=== PATIENT | male | born 1995 | race American Indian/Alaskan Native ===

== ENCOUNTER 2016-11-01 19:40 | Emergency (ER) | payer MEDICAID, OTHER ==
[~2016-11-01] VITALS: Ht 188 cm; Wt 87.1 kg
[2016-11-01 19:40] VITALS: BP 120/60
[2016-11-01] MEDS ORDERED: NORCO 5/325MG TABLET (BULK FOR ED) PO ONE (22:00)
[2016-11-01] MEDS ORDERED: IBUP600T26 PO (22:00)
--- NOTE | 2016-11-02 07:38 | REP ---
Clinical: Trauma . Technique: Internal rotation, external rotation, and Y view right shoulder . Findings: No acute fracture or dislocation. The acromioclavicular and glenohumeral joints are intact. No periarticular calcifications or degenerative changes are appreciated. Sub acromial space is normal. Surrounding soft tissues are unremarkable. Impression: Normal right shoulder radiographs. Signed by Hamilton Savage MD 11/02/2016 07:30 A
== END 2016-11-01 22:20 | disposition home or self-care (01) ==
LOC: M ED 20:01
DX: S46.811A Strain of other muscles, fascia and tendons at shoulder and upper arm level, right arm, initial encounter (principal); X58.XXXA Exposure to other specified factors, initial encounter; Y92.39 Other specified sports and athletic area as the place of occurrence of the external cause; Y93.89 Activity, other specified; Y99.9 Unspecified external cause status; F17.200 Nicotine dependence, unspecified, uncomplicated

== ENCOUNTER 2017-03-01 16:21 | Emergency (ER) | payer OTHER ==
[~2017-03-01] VITALS: Ht 188 cm; Wt 90.9 kg
[~2017-03-01 16:21] MED LIST: IBUP-1022 PO
[2017-03-01] MEDS ORDERED: ONDANSETRON 4MG/2ML VIAL (J2405) IV ONE (17:45)
[2017-03-01] MEDS ORDERED: NS 1,000 ML IV ONE (17:45)
[2017-03-01 18:19] LABS: BASO % 0.5 % (0.0-1.0); EOS # 0.2 K/mm3 (0.0-0.50); EOS % 2.4 % (0.0-3.0); LARGE UNSTAINED CELL # 0.2 K/mm3 (0.0-0.4); LARGE UNSTAINED CELL % 2.8 % (0.0-4.0); LYMPH # 2.3 K/mm3 (1.5-6.5); LYMPH % 31.4 % (24.0-44.0); MEAN CORPUSCULAR HEMOGLOBIN 32.2 pg (27.0-33.0); MEAN CORPUSCULAR VOLUME 87.1 fl (80.0-96.0); MONO # 0.4 K/mm3 (0.0-0.8); MONO % 5.5 % (0.0-5.0); NEUTROPHILS # 4.2 K/mm3 (1.8-7.7); NEUTROPHILS % 57.4 % (36.0-66.0); PLATELET COUNT, AUTOMATED 263 k/mm3 (150-450); RED CELL DISTRIBUTION WIDTH 11.5 % (11.5-14.5); WHITE BLOOD COUNT 7.2 K/mm3 (4.0-10.0)
[2017-03-01 18:46] LABS: ALBUMIN 4.6 GM/DL (3.2-5.2); ALKALINE PHOSPHATASE 93 U/L (45-117); ALT/SGPT 116 U/L (12-78); ANION GAP 10 MEQ/L (8-16); AST/SGOT 47 U/L (15-37); BILIRUBIN,DIRECT < 0.1 MG/DL (0.0-0.2); BILIRUBIN,TOTAL 0.4 MG/DL (0.2-1.0); BLOOD UREA NITROGEN 16 MG/DL (7-18); CALCIUM LEVEL 9.6 MG/DL (8.5-10.1); CARBON DIOXIDE LEVEL 26 MEQ/L (21-32); CHLORIDE LEVEL 103 MEQ/L (98-107); CREATININE FOR GFR 0.96 MG/DL (0.70-1.30); GLOMERULAR FILTRATION RATE > 60.0 (>60); GLUCOSE, FASTING 91 MG/DL (70-105); POTASSIUM SERUM 3.5 MEQ/L (3.5-5.1); SODIUM LEVEL 139 MEQ/L (136-145); TOTAL PROTEIN 8.8 GM/DL (6.4-8.2)
[2017-03-01 18:51] LABS: ADD MORPHOLOGY? NO; MEAN CORPUSCULAR HGB CONC 36.9 g/dl (32.0-36.5)
[2017-03-01] MEDS ORDERED: ZOFR4TAB3 PO (20:17)
[2017-03-01 20:56] VITALS: BP 126/72
== END 2017-03-01 20:58 | disposition home or self-care (01) ==
LOC: M ED 16:21
DX: R11.2 Nausea with vomiting, unspecified (principal); F17.210 Nicotine dependence, cigarettes, uncomplicated
CPT/HCPCS: 80048; 80076; 83690; 85025; 96374; 99283; J2405

== ENCOUNTER 2017-03-21 17:17 | Emergency (ER) | payer OTHER ==
[~2017-03-21] VITALS: Ht 190.5 cm; Wt 94.5 kg
[~2017-03-21 17:17] MED LIST changes: +ZOFR4TAB3 PO
[2017-03-21 20:18] VITALS: BP 130/76
== END 2017-03-21 20:18 | disposition home or self-care (01) ==
LOC: M ED 17:17
DX: H61.23 Impacted cerumen, bilateral (principal)

== ENCOUNTER 2017-07-31 06:24 | Emergency (ER) | payer OTHER ==
[2017-07-31] MEDS: IBUPROFEN 800 MG TAB PO (08:00)
== END 2017-07-31 08:04 | disposition home or self-care (01) ==
LOC: M ED 06:24
DX: S93.492A Sprain of other ligament of left ankle, initial encounter (principal); X50.0XXA Overexertion from strenuous movement or load, initial encounter; Y92.018 Other place in single-family (private) house as the place of occurrence of the external cause; K21.9 Gastro-esophageal reflux disease without esophagitis
CPT/HCPCS: 73610

== ENCOUNTER 2018-01-28 09:38 | Emergency (ER) | payer OTHER ==
[2018-01-28] MEDS: ONDANSETRON 4 MG ORAL DISINTEGRATING TAB (Q0162 PER 1MG) PO (10:07)
[2018-01-28] MEDS: PANTOPRAZOLE 40MG TAB (PROTONIX) PO (10:07)
== END 2018-01-28 10:11 | disposition home or self-care (01) ==
LOC: M ED 09:38
DX: K29.20 Alcoholic gastritis without bleeding (principal)
CPT/HCPCS: Q0162

== ENCOUNTER 2018-03-23 10:49 | Emergency (ER) | payer OTHER ==
[2018-03-23] MEDS: BACTRIM 160MG/800MG DS TAB PO (11:30)
== END 2018-03-23 11:35 | disposition home or self-care (01) ==
LOC: M ED 10:49
DX: L03.113 Cellulitis of right upper limb (principal); T63.301A Toxic effect of unspecified spider venom, accidental (unintentional), initial encounter; X58.XXXA Exposure to other specified factors, initial encounter; Y92.89 Other specified places as the place of occurrence of the external cause; F17.200 Nicotine dependence, unspecified, uncomplicated
CPT/HCPCS: 99282

== ENCOUNTER 2018-05-17 19:56 | Emergency (ER) | payer SELFPAY, MEDICAID, OTHER ==
[2018-05-17] MEDS: GI COCKTAIL 50ML BTL(HYOSCYAMINE/MAALOX/LIDOCAINE VISCOUS)(1:3:1) PO (21:00)
[2018-05-17] MEDS: METOCLOPRAMIDE 10 MG TAB PO (21:01)
[2018-05-17] MEDS: PANTOPRAZOLE 40MG TAB (PROTONIX) PO (21:01)
== END 2018-05-17 21:47 | disposition home or self-care (01) ==
LOC: M ED 19:56
DX: K21.9 Gastro-esophageal reflux disease without esophagitis (principal); R11.2 Nausea with vomiting, unspecified; R12 Heartburn
CPT/HCPCS: 99282

== ENCOUNTER 2018-08-25 10:38 | Emergency (ER) | payer MEDICAID, SELFPAY ==
[~2018-08-25] VITALS: Ht 188 cm; Wt 94.5 kg
[~2018-08-25 10:38] MED LIST changes: +BACT800T5 PO; +PROT1TAB2 PO; +RANI15TA PO; +ZOFR4TAB14 PO; -ZOFR4TAB3 PO
[2018-08-25 11:55] LABS: BASO % 0.4 % (0.0-1.0); EOS # 0.1 10^3/uL (0.0-0.50); HEMATOCRIT 43.6 % (42.0-52.0); HEMOGLOBIN 15.2 g/dl (13.5-17.5); LYMPH # 2.2 10^3/uL (1.5-6.5); LYMPH % 31.4 % (24.0-44.0); MEAN CORPUSCULAR HEMOGLOBIN 30.5 pg (27.0-33.0); MEAN CORPUSCULAR HGB CONC 34.9 g/dl (32.0-36.5); MEAN CORPUSCULAR VOLUME 87.4 fl (80.0-96.0); MONO # 0.6 10^3/uL (0.0-0.8); MONO % 8.2 % (0.0-5.0); NEUTROPHILS # 4.1 10^3/uL (1.8-7.7); NEUTROPHILS % 58.9 % (36.0-66.0); PLATELET COUNT, AUTOMATED 239 10^3/uL (150-450); RED BLOOD COUNT 4.99 10^6/uL (4.30-6.10)
--- NOTE | 2018-08-25 12:06 | REP ---
Chest two views HISTORY: Hemoptysis Comparison: None The lungs are clear. The heart is normal in size. The pulmonary vasculature is normal in appearance. The bony structure is intact. IMPRESSION: No acute disease. Electronically Signed by Milton Stapleton MD 08/25/2018 11:58 A
[2018-08-25 12:10] LABS: INR 0.93; PARTIAL THROMBOPLASTIN TIME 31.3 SECONDS (25.4-37.6); PROTHROMBIN TIME 12.6 SECONDS (12.1-14.4)
[2018-08-25 12:18] LABS: ALBUMIN 4.3 GM/DL (3.2-5.2); ALT/SGPT 94 U/L (12-78); BILIRUBIN,TOTAL 0.3 MG/DL (0.2-1.0); BLOOD UREA NITROGEN 13 MG/DL (7-18); CALCIUM LEVEL 8.5 MG/DL (8.5-10.1); CARBON DIOXIDE LEVEL 29 MEQ/L (21-32); CHLORIDE LEVEL 105 MEQ/L (98-107); CREATININE FOR GFR 0.98 MG/DL (0.70-1.30); GLOMERULAR FILTRATION RATE > 60.0 (>60); GLUCOSE, FASTING 141 MG/DL (70-100); POTASSIUM SERUM 3.6 MEQ/L (3.5-5.1); SODIUM LEVEL 140 MEQ/L (136-145); TOTAL PROTEIN 8.2 GM/DL (6.4-8.2)
[2018-08-25 12:19] LABS: ETHYL ALCOHOL (ETHANOL) < 0.003 % (0.000-0.010)
[2018-08-25 12:39] VITALS: BP 132/76
[2018-08-25] MEDS ORDERED: TESS100C PO (12:48)
== END 2018-08-25 12:59 | disposition home or self-care (01) ==
LOC: M ED 10:38
DX: J06.9 Acute upper respiratory infection, unspecified (principal); R04.2 Hemoptysis; R94.5 Abnormal results of liver function studies; K21.9 Gastro-esophageal reflux disease without esophagitis; F14.11 Cocaine abuse, in remission; F10.11 Alcohol abuse, in remission; F17.200 Nicotine dependence, unspecified, uncomplicated
CPT/HCPCS: 36415; 71046; 80053; 85025; 85610; 85730; 86850; 86900; 86901; 87880; 99284; G0480

== ENCOUNTER 2018-10-04 21:13 | Emergency (ER) | payer MEDICAID, OTHER ==
[~2018-10-04] VITALS: Ht 190.5 cm; Wt 93.6 kg
[~2018-10-04 21:13] MED LIST changes: +TESS100C PO
[2018-10-04] MEDS ORDERED: MORPHINE 10 MG/ML 1ML VIAL (J2270) IM ONE (22:15)
[2018-10-04] MEDS ORDERED: NAPR-837 PO (23:09)
[2018-10-04 23:19] VITALS: BP 124/78
--- NOTE | 2018-10-05 08:58 | REP ---
RIGHT SHOULDER, TWO VIEWS: Two views of the right shoulder are performed. There is anterior dislocation of the humeral head out of the glenoid fossa. No definite associated fracture is seen of the visualized osseous structures. IMPRESSION: Anterior dislocation of humeral head. Electronically Signed by Theo Crews MD 10/05/2018 12:43 P
--- NOTE | 2018-10-05 09:12 | REP ---
RIGHT SHOULDER, SINGLE VIEW: Single view of the right shoulder was performed status-post reduction of dislocation. There is successful reduction of the humeral head which is now is located in the glenoid fossa. There may be a tiny chip fracture of the inferior bony glenoid. IMPRESSION: Successful reduction of humeral head. Possible tiny chip fracture inferior glenoid. Electronically Signed by Theo Crews MD 10/05/2018 12:44 P
--- NOTE | 2018-10-06 06:32 | ED PDOC ---
Post-Departure Follow-Up xray discrepancy right shoulder givent o ed discharge specialist yesterday to contact pt, sherrell mathew. will also send certified letter Dilcia Vivas MD Oct 06, 2018 06:32
== END 2018-10-04 23:21 | disposition home or self-care (01) ==
LOC: M ED 21:13
DX: S43.014A Anterior dislocation of right humerus, initial encounter (principal); S42.141A Displaced fracture of glenoid cavity of scapula, right shoulder, initial encounter for closed fracture; W19.XXXA Unspecified fall, initial encounter; Y92.410 Unspecified street and highway as the place of occurrence of the external cause; F32.9 Major depressive disorder, single episode, unspecified
CPT/HCPCS: 23650; 73020; 73030; 96372; 99284; J2270

== ENCOUNTER → 2019-04-11 | Outpatient (REF) | payer OTHER ==
[~2019-04-11] MED LIST changes: +NAPR-837 PO
[2019-04-11 17:38] LABS: BASO % 0.4 % (0.0-1.0); EOS # 0.1 10^3/uL (0.0-0.5); EOS % 1.5 % (0.0-3.0); HEMATOCRIT 45.5 % (42.0-52.0); HEMOGLOBIN 15.6 g/dl (13.5-17.5); LYMPH # 3.3 10^3/uL (1.5-5.0); LYMPH % 45.7 % (24.0-44.0); MEAN CORPUSCULAR HEMOGLOBIN 30.1 pg (27.0-33.0); MEAN CORPUSCULAR HGB CONC 34.3 g/dl (32.0-36.5); MEAN CORPUSCULAR VOLUME 87.8 fl (80.0-96.0); MONO # 0.6 10^3/uL (0.0-0.8); MONO % 7.9 % (0.0-5.0); NEUTROPHILS # 3.2 10^3/uL (1.5-8.5); NEUTROPHILS % 44.4 % (36.0-66.0); PLATELET COUNT, AUTOMATED 265 10^3/uL (150-450); RED BLOOD COUNT 5.18 10^6/uL (4.30-6.10); WHITE BLOOD COUNT 7.3 10^3/uL (4.0-10.0)
[2019-04-11 17:58] LABS: HEMOGLOBIN A1c 5.4 %
[2019-04-11 18:07] LABS: ALBUMIN 4.7 GM/DL (3.2-5.2); ALT/SGPT 84 U/L (12-78); BILIRUBIN,TOTAL 0.4 MG/DL (0.2-1.0); BLOOD UREA NITROGEN 13 MG/DL (7-18); CALCIUM LEVEL 9.9 MG/DL (8.5-10.1); CARBON DIOXIDE LEVEL 28 MEQ/L (21-32); CHLORIDE LEVEL 102 MEQ/L (98-107); CHOLESTEROL LEVEL 186 MG/DL (<200); CHOLESTEROL RISK RATIO 3.957 (<5); CREATININE FOR GFR 0.96 MG/DL (0.70-1.30); FREE T4 0.97 NG/DL (0.76-1.46); GLOMERULAR FILTRATION RATE > 60.0 (>60); GLUCOSE, FASTING 86 MG/DL (70-100); HDL CHOLESTEROL 47 MG/DL (>40); LDL CHOLESTEROL 111 MG/DL (<100); NON-HDL-C 139 MG/DL; POTASSIUM SERUM 4.2 MEQ/L (3.5-5.1); SODIUM LEVEL 137 MEQ/L (136-145); TOTAL PROTEIN 8.5 GM/DL (6.4-8.2); TRIGLYCERIDES LEVEL 140 MG/DL (<150)
== END ==
LOC: M LAB REF 17:11
PROVIDERS: ATTEND Nurse Practitioner Family
DX: Z13.9 Encounter for screening, unspecified (principal)

== ENCOUNTER 2019-05-14 08:47 | Emergency (ER) | payer OTHER ==
[~2019-05-14] VITALS: Ht 188 cm; Wt 95.3 kg
[2019-05-14] MEDS ORDERED: PANTOPRAZOLE 40MG INJ (PROTONIX) (C9113) IV ONE (09:15)
[2019-05-14] MEDS ORDERED: NS 1,000 ML IV ONE (09:15)
[2019-05-14 10:08] LABS: BASO % 0.3 % (0.0-1.0); EOS # 0.1 10^3/uL (0.0-0.5); EOS % 1.1 % (0.0-3.0); HEMATOCRIT 45.4 % (42.0-52.0); HEMOGLOBIN 15.7 g/dl (13.5-17.5); LYMPH % 41.3 % (24.0-44.0); MEAN CORPUSCULAR HEMOGLOBIN 30.2 pg (27.0-33.0); MEAN CORPUSCULAR HGB CONC 34.6 g/dl (32.0-36.5); MEAN CORPUSCULAR VOLUME 87.3 fl (80.0-96.0); MONO # 0.6 10^3/uL (0.0-0.8); MONO % 8.4 % (0.0-5.0); NEUTROPHILS # 3.5 10^3/uL (1.5-8.5); NEUTROPHILS % 48.6 % (36.0-66.0); PLATELET COUNT, AUTOMATED 248 10^3/uL (150-450); WHITE BLOOD COUNT 7.2 10^3/uL (4.0-10.0)
[2019-05-14 10:35] LABS: APPEARANCE, URINE CLEAR (CLEAR); BACTERIA, URINE AUTO NEGATIVE (NEGATIVE); BILIRUBIN, URINE AUTO NEGATIVE (NEGATIVE); BLOOD, URINE BLOOD 1+ (NEGATIVE); COLOR, URINE YELLOW (YELLOW); GLUCOSE, URINE (UA) AUTO NEGATIVE (NEGATIVE); KETONE, URINE AUTO NEGATIVE (NEGATIVE); LEUKOCYTE ESTERASE, URINE AUTO NEGATIVE (NEGATIVE); MUCUS, URINE SMALL (NEGATIVE); NITRITE, URINE AUTO NEGATIVE (NEGATIVE); PROTEIN, URINE AUTO NEGATIVE (NEGATIVE); RBC, URINE AUTO 9 /HPF (0-3); SPECIFIC GRAVITY URINE AUTO 1.024 (1.002-1.035); SQUAMOUS EPITHELIAL CELL UR AU 0 /HPF (0-6); UROBILINOGEN, URINE AUTO 0.2 mg/dL (0.0-2.0); WBC, URINE AUTO 1 /HPF (0-3)
[2019-05-14 10:39] LABS: ALBUMIN 4.4 GM/DL (3.2-5.2); ALT/SGPT 124 U/L (12-78); BILIRUBIN,DIRECT < 0.1 MG/DL (0.0-0.2); BILIRUBIN,TOTAL 0.3 MG/DL (0.2-1.0); BLOOD UREA NITROGEN 14 MG/DL (7-18); CALCIUM LEVEL 9.3 MG/DL (8.5-10.1); CARBON DIOXIDE LEVEL 27 MEQ/L (21-32); CHLORIDE LEVEL 104 MEQ/L (98-107); CREATININE FOR GFR 0.97 MG/DL (0.70-1.30); GLOMERULAR FILTRATION RATE > 60.0 (>60); GLUCOSE, FASTING 100 MG/DL (70-100); LIPASE 111 U/L (73-393); POTASSIUM SERUM 3.8 MEQ/L (3.5-5.1); SODIUM LEVEL 137 MEQ/L (136-145); TOTAL PROTEIN 8.4 GM/DL (6.4-8.2)
--- NOTE | 2019-05-14 11:25 | REP ---
Clinical: Hematuria and left-sided flank pain. Technique: Axial noncontrast images from the lung bases to the pubic symphysis with coronal and sagittal re-formations. Findings: Lung bases are clear. Visualized heart and pericardium normal. Mild fatty infiltration to the liver suggested. Spleen, pancreas, gallbladder, bilateral adrenal glands and kidneys are normal. Specifically, no perinephric stranding, hydroureteronephrosis, intrarenal or obstructing ureteral calculi are identified. The enteric system is without obstruction or acute inflammatory process. Normal terminal ileum and appendix identified in the right lower quadrant. Pelvis demonstrates normal bladder and age appropriate prostate/seminal vesicles. Abdominal aorta without aneurysm. Musculoskeletal structures are intact. Impression: Normal CT of the abdomen and pelvis. Normal appearance to the urinary tract system. Normal right lower quadrant structures. Electronically Signed by Hamilton Savage MD 05/14/2019 11:16 A
[2019-05-14] MEDS ORDERED: OMEP-218 PO (11:50)
[2019-05-14 11:58] VITALS: BP 136/78
== END 2019-05-14 12:00 | disposition home or self-care (01) ==
LOC: M ED 08:47
DX: R11.2 Nausea with vomiting, unspecified (principal); R31.9 Hematuria, unspecified; F12.10 Cannabis abuse, uncomplicated; F10.10 Alcohol abuse, uncomplicated
CPT/HCPCS: 36415; 74176; 80048; 80076; 81001; 83690; 85025; 99284; C9113

== ENCOUNTER → 2019-05-16 | Outpatient (REF) | payer OTHER ==
[~2019-05-16] MED LIST changes: +OMEP-218 PO
[2019-05-16 13:33] LABS: APPEARANCE, URINE HAZY (CLEAR); BACTERIA, URINE AUTO NEGATIVE (NEGATIVE); BILIRUBIN, URINE AUTO NEGATIVE (NEGATIVE); BLOOD, URINE BLOOD 1+ (NEGATIVE); COLOR, URINE YELLOW (YELLOW); GLUCOSE, URINE (UA) AUTO NEGATIVE (NEGATIVE); KETONE, URINE AUTO NEGATIVE (NEGATIVE); LEUKOCYTE ESTERASE, URINE AUTO NEGATIVE (NEGATIVE); MUCUS, URINE SMALL (NEGATIVE); NITRITE, URINE AUTO NEGATIVE (NEGATIVE); PROTEIN, URINE AUTO NEGATIVE (NEGATIVE); RBC, URINE AUTO 1 /HPF (0-3); SPECIFIC GRAVITY URINE AUTO 1.024 (1.002-1.035); SQUAMOUS EPITHELIAL CELL UR AU 0 /HPF (0-6); UROBILINOGEN, URINE AUTO 0.2 mg/dL (0.0-2.0); WBC, URINE AUTO 1 /HPF (0-3)
== END ==
LOC: M SFHCPLAZ 13:04
PROVIDERS: ATTEND Nurse Practitioner Women's Health
DX: R31.29 Other microscopic hematuria (principal)

== ENCOUNTER 2022-06-03 23:39 | Emergency (ER) | payer OTHER, MEDICAID ==
[~2022-06-03] VITALS: Ht 188 cm; Wt 90.9 kg
[~2022-06-03 23:39] MED LIST changes: +OMEP-173 PO; -OMEP-218 PO
[2022-06-04] MEDS ORDERED: fentaNYL 100 MCG/2 ML INJECTION IV ONE ×2
[2022-06-04] MEDS ORDERED: MIDAZOLAM INJ 2MG/2ML VIAL (J2250 PER 1MG) IV ONE ×2
[2022-06-04 02:00] VITALS: BP 133/84
== END 2022-06-04 03:52 | disposition home or self-care (01) ==
LOC: M ED 23:39 → EDBD 23:39 → M ED 06-04 03:52
DX: S43.004A Unspecified dislocation of right shoulder joint, initial encounter (principal); F10.129 Alcohol abuse with intoxication, unspecified; W01.0XXA Fall on same level from slipping, tripping and stumbling without subsequent striking against object, initial encounter
CPT/HCPCS: 73030; 96374; 96375; 99284; J2250; J3010

== ENCOUNTER 2024-10-02 17:25 | Emergency (ER) | payer OTHER, SELFPAY ==
[~2024-10-02] VITALS: Ht 190.5 cm; Wt 96.7 kg
[2024-10-02 21:02] VITALS: BP 129/78; TEMP 101; O2SAT 96
== END 2024-10-02 21:05 | disposition left against medical advice (07) ==
LOC: M ED 17:25
DX: Z53.21 Procedure and treatment not carried out due to patient leaving prior to being seen by health care provider (principal)